=== PATIENT | male | born 1980 | race Caucasian/White ===

== ENCOUNTER 2021-10-25 16:18 | Emergency (ER) | payer OTHER, MEDICAID, SELFPAY ==
[2021-10-25 16:43] VITALS: BP 133/95; PULSE 107; RESP 18; TEMP 36.6; O2SAT 99; BMI 22.9
--- NOTE | 2021-10-25 16:51 | DI.US.S_ITS ---
PROCEDURE: US PERIPH VENOUS LOW EXTREM RT INDICATIONS: right leg pain swelling TECHNIQUE: Real-time imaging, as well as color and pulse Doppler interrogation, were performed of the lower extremity deep veins from the inguinal ligament to the popliteal fossa. COMPARISON: None. FINDINGS: The common femoral, femoral and popliteal veins are normally compressible, and free of intraluminal thrombus. Color and pulse Doppler demonstrate normal phasic intraluminal flow. There is normal augmentation response to distal compression maneuver. IMPRESSION: No right lower extremity DVT. Dictated by: Micha Martines M.D. on 10/25/2021 at 17:44 Approved by: Micha Martines M.D. on 10/25/2021 at 17:45
[2021-10-25 19:29] VITALS: PULSE 107; O2SAT 100
[2021-10-25 19:30] VITALS: PULSE 67; O2SAT 99
[2021-10-25 19:31] VITALS: BP 150/110; PULSE 83; O2SAT 99
--- NOTE | 2021-10-25 19:33 | ED.EXTPRO ---
HPI - Extremity Problem General Chief complaint: Extremity Problem,Nontraumatic Stated complaint: PAIN RIGHT FOOT Time Seen by Provider: 10/25/21 18:37 Source: patient Mode of arrival: Ambulatory History of Present Illness HPI Narrative: 40-year-old gentleman with no significant medical issues who takes no prescription medications no prior diagnoses of arthritis or gout and no family history of such. Over the last week has had increasing pain and tenderness in the right foot and ankle. He was seen at urgent care x-rays were reportedly unremarkable he was told to come to [facility] for an ultrasound which shows no DVT. He reports no fevers, cough, chills, abdominal pain, vomiting, diarrhea. He has not had any pain in the knee hip or lower back. He very specifically does not recall any obvious trauma to the foot. Related Data Home Medications Medication Instructions Recorded Confirmed No Known Home Medications 10/25/21 10/25/21 Allergies Allergy/AdvReac Type Severity Reaction Status Date / Time No Known Drug Allergies Allergy Verified 10/25/21 16:45 Review of Systems Review of Systems Narrative: Remainder of complete review of systems is otherwise unremarkable except for that included in the HPI. Patient History Social History Smoking Status: Current every day smoker Smoking Status: Current every day smoker alcohol intake frequency: 3 or more drinks per day Substance Use Type: marijuana Exam Initial Vital Signs Initial Vital Signs: Vital Signs Temperature 98 F 10/25/21 16:43 Pulse Rate 107 H 10/25/21 16:43 Respiratory Rate 18 10/25/21 16:43 Blood Pressure 133/95 H 10/25/21 16:43 Pulse Oximetry 99 10/25/21 16:43 Oxygen Delivery Method 10/25/21 16:43 General: Healthy appearing, in no acute distress. Able to give a complete and coherent history. Well-nourished well-developed HEENT: Moist mucous membranes, normal sclera with reactive pupils, Respiratory: Lungs are clear to auscultation, no wheezing no rales no rhonchi. Full and symmetrical air movement Cardiac: Regular rate and rhythm no murmurs no bruits Abdomen: Soft, nontender, good bowel tones, no flank pain, no inguinal adenopathy Skin: Warm and dry, no rashes Neurologic: Grossly neurologically intact with no obvious asymmetries or abnormalities Extremities: Right foot and ankle are moderately swollen, he has significant tenderness on the lateral malleolus as well as the plantar surface of the foot and is not able to bear weight. There is no warmth or redness to suggest inflammation, gout or cellulitis. Psych: Cooperative, appropriate insight and affect Procedures Orthopedic Splinting/Casting Right foot: Time of procedure: 21:20 Side: right Lower Extremity Injury Location: foot Lower Extremity Immobilizer: Dalton wrap Post splinting neuro exam: intact Post splinting vascular exam: intact Placed by: Provider Course Orders Ordered: ED Orders 10/25/21 16:51 US periph venous low extrem rt Stat 10/25/21 19:36 CT LE RT wo con Stat Discontinued Medications Ibuprofen (Ibuprofen 400 Mg Tablet) 400 mg PO NOW ONE Stop: 10/25/21 20:42 Last Admin: 10/25/21 20:46 Dose: 400 mg Documented By: AT Oxycodone/Acetaminophen (Oxycodone/Acetaminophen 5/325 Tablet) 1 tab PO NOW ONE Stop: 10/25/21 20:42 Last Admin: 10/25/21 20:46 Dose: 1 tab Documented By: AT Vital Signs Vital signs: Vital Signs - 8 hr 10/25/21 16:43 10/25/21 19:29 10/25/21 19:30 Temperature 98 F Pulse Rate 107 H 107 H 67 Respiratory Rate 18 Blood Pressure 133/95 H Pulse Oximetry 99 100 99 Oxygen Delivery Method Room Air 10/25/21 19:31 10/25/21 19:31 Temperature Pulse Rate 83 Respiratory Rate Blood Pressure 150/110 H Pulse Oximetry 99 Oxygen Delivery Method MDM - Extremity (Nontraumatic) Imaging Data US - DVT: Radiologist's Impression: FINDINGS:? The common femoral, femoral and popliteal veins are normally compressible, and free of intraluminal thrombus.? Color and pulse Doppler demonstrate normal phasic intraluminal flow.? There is normal augmentation response to distal compression maneuver. ? ? IMPRESSION:? No right lower extremity DVT. ? ? Dictated by: Micha Martines M.D. on 10/25/2021 at 17:44 ? ? CT of the right foot and ankle: Radiologist's Impression: FINDINGS:? Image quality:? There is slight motion artifact.? ? Bones:? No acute fractures or dislocation.? There is a small corticated ossicle between the bases of the 1st and 2nd metatarsals dorsally suggestive of a prior avulsion injury.? No definite mild line mint along the tarsometatarsal joints.? ? Soft tissues:? The flexor, extensor, peroneal, and Achilles tendons appear intact.? There is mild periarticular subcutaneous edema along the ankle as well as mild subcutaneous edema along the dorsal aspect of the foot.? Visualized musculature appears grossly preserved. ? IMPRESSION:? ? 1. No acute fracture or dislocation. ? 2. Small corticated ossicle between the bases of the 1st and 2nd metatarsals suggestive of a prior avulsion injury.? No definite malalignment along the tarsometatarsal joints.? ? Dictated by: Vamsi Garcia M.D. on 10/25/2021 at 20:12 ? ? MDM Narrative Medical decision making narrative: 40-year-old gentleman with week to week and half of increasing right foot pain and swelling with no obvious trauma. No evidence of infection, inflammatory arthritis, fractures, DVT, acute tendon injury. At this point reassurance is given common ankle wrap is applied, recommended keeping the foot elevated, use of ibuprofen and Tylenol, ice as he has been doing. If symptoms continue to worsen he will need follow-up with primary care doctor for further evaluation. Questions are answered he is safe for home discharge Discharge Plan Departure Patient Disposition: Home Clinical Impression: Acute foot pain Qualifiers: Laterality: right Qualified Code(s): M79.671 - Pain in right foot Instructions: DI for Foot Pain Activity Restrictions/Additional Instructions: Thank you for coming in today I do not have a full explanation for why your foot and ankle are swollen. I can not tell you there are not any life-threatening explanations. There is no evidence of infection, broken bones, deeper tissue or bone abnormalities, blood clots in your leg and this is not plantar fasciitis. I have given you an Dalton wrap to help with comfort. Using 400 mg of ibuprofen (2 [id number] pills) and 1 Tylenol every 6 hours can be very helpful in controlling pain. Keeping her foot elevated will also be helpful If you continue to have issues she will need to follow-up with your primary care provider Prescriptions: No Action No Known Home Medications Stand Alone Forms: Work Release Note
--- NOTE | 2021-10-25 19:36 | DI.CT.S_ITS ---
PROCEDURE: CT LE RT WO CON INDICATIONS: ankle and foot worsening pain, swelling TECHNIQUE: Noncontrast 1-1.5 mm axial sections acquired from above the tibiotalar joint to the bottom of the calcaneus, with coronal and sagittal reformats. COMPARISON: None. FINDINGS: Image quality: There is slight motion artifact. Bones: No acute fractures or dislocation. There is a small corticated ossicle between the bases of the 1st and 2nd metatarsals dorsally suggestive of a prior avulsion injury. No definite mild line mint along the tarsometatarsal joints. Soft tissues: The flexor, extensor, peroneal, and Achilles tendons appear intact. There is mild periarticular subcutaneous edema along the ankle as well as mild subcutaneous edema along the dorsal aspect of the foot. Visualized musculature appears grossly preserved. IMPRESSION: 1. No acute fracture or dislocation. 2. Small corticated ossicle between the bases of the 1st and 2nd metatarsals suggestive of a prior avulsion injury. No definite malalignment along the tarsometatarsal joints. Dictated by: Vamsi Garcia M.D. on 10/25/2021 at 20:12 Approved by: Vamsi Garcia M.D. on 10/25/2021 at 20:20
[2021-10-25] MEDS: OXYCODONE/ACETAMINOPHEN 5/325 TABLET 1 TAB PO (20:46)
[2021-10-25] MEDS: IBUPROFEN 400 MG TABLET PO (20:46)
[2021-10-25 21:26] VITALS: BP 163/101; PULSE 96; RESP 18; O2SAT 100
== END 2021-10-25 21:28 | disposition home or self-care (01) ==
PROVIDERS: Emergency Provider Emergency Medicine
DX: M79.671 Pain in right foot (principal)
CPT/HCPCS: 73700; 93971; 99283; 99284